=== PATIENT | male | born 1970 | race Caucasian/White ===

== ENCOUNTER → 2016-09-22 | Outpatient (REF) ==
[~2016-09-22] MED LIST: FLEXERIL 1010 MG/TAB PO; NAPROSYN500 MG PO; NORCO 325 MG-51 TAB PO; ZITHROMAX 250M250 MG PO
== END ==
LOC: WSOH 09:19
DX: Z00.00 Encounter for general adult medical examination without abnormal findings (principal)
CPT/HCPCS: G0463